=== PATIENT | female | born 2000 | race Caucasian/White ===

== ENCOUNTER 2019-06-06 01:19 | Emergency (ER) | payer SELFPAY ==
[~2019-06-06] VITALS: Ht 149.9 cm; Wt 45.0 kg
[2019-06-06] MEDS ORDERED: HYDROCODONE/ACETAMINOPHEN 5/325MG TABLET PO STA (02:26)
[2019-06-06 05:20] VITALS: BP 110/60
== END 2019-06-06 05:20 | disposition home or self-care (01) ==
LOC: ER 01:19
DX: S00.03XA Contusion of scalp, initial encounter (principal); S00.11XA Contusion of right eyelid and periocular area, initial encounter; M54.9 Dorsalgia, unspecified; F12.10 Cannabis abuse, uncomplicated; Y04.0XXA Assault by unarmed brawl or fight, initial encounter; Y93.39 Activity, other involving climbing, rappelling and jumping off; Y92.89 Other specified places as the place of occurrence of the external cause; Y99.8 Other external cause status
CPT/HCPCS: 70486; 71045; 81025; 99285